=== PATIENT | female | born 1980 | race Caucasian/White ===

== ENCOUNTER 2023-08-24 14:33 | Emergency (ER) | payer BC, OTHER ==
[2023-08-24] MEDS ORDERED: Sodium Chloride 0.9% 2.5 ML Syringe FLUSH PRN (14:38)
[2023-08-24] MEDS ORDERED: Diphtheria,Pertussis(Acell),Tetanus Vaccine 0.5 ML Syringe IM ONE (14:38)
[2023-08-24] MEDS ORDERED: Sodium Chloride 0.9% 10 ML Syringe FLUSH PRN (14:38)
[2023-08-24] MEDS ORDERED: Ondansetron 4 MG/2 ML SDV IVPUSH ONE (14:38)
[2023-08-24] MEDS ORDERED: Lidocaine 1% with EPINEPHrine 1:100,000 20 ML MDV INJECT ONE (14:38)
[2023-08-24 14:46] LABS: BASOPHILS ABSOLUTE AUTO 0.13 K/uL (0.00-0.20); EOSINOPHILS ABSOLUTE AUTO 0.12 K/uL (0.00-0.45); EOSINOPHILS PERCENT AUTO 1.9 % (0.0-6.0); HEMATOCRIT 39.4 % (37.0-47.0); HEMOGLOBIN 12.8 g/dL (12.0-16.0); IMMATURE GRAN ABSOLUTE AUTO 0.02 K/uL (0.00-0.05); IMMATURE GRAN PERCENT AUTO 0.3 % (0.0-0.4); LYMPHOCYTES ABSOLUTE AUTO 3.47 K/uL (1.00-4.80); LYMPHOCYTES PERCENT AUTO 53.7 % (24.0-44.0); MEAN CORPUSCULAR HEMOGLOBIN 27.6 pg (28.0-32.0); MEAN CORPUSCULAR HGB CONC 32.5 g/dL (32.0-36.0); MEAN CORPUSCULAR VOLUME 85.1 fL (83.0-99.0); MEAN PLATELET VOLUME 10.6 fL (9.4-12.3); MONOCYTES ABSOLUTE AUTO 0.52 K/uL (0.00-0.80); NEUTROPHILS PERCENT AUTO 34.1 % (41.0-71.0); PLATELET COUNT,PLT 339 K/uL (150-400); RED BLOOD CELL COUNT 4.63 M/uL (4.10-5.30); WHITE BLOOD CELL COUNT,WBC 6.46 K/uL (3.9-11.3)
[2023-08-24 15:04] LABS: INR 1.03 (0.86-1.11)
[2023-08-24] MEDS ORDERED: Morphine 2 MG/ML SYRINGE IVPUSH ONE (15:06)
[2023-08-24] MEDS ORDERED: Naloxone 0.4 MG/ML SDV IVPUSH PRN (15:06)
[2023-08-24 15:17] LABS: A/G RATIO 0.9 (0.9-1.6); ALBUMIN 3.9 g/dL (3.4-5.0); BILIRUBIN TOTAL 0.2 mg/dL (0.2-1.0); CALCIUM 8.5 mg/dL (8.5-10.1); CARBON DIOXIDE,CO2 26.2 mmol/L (21.0-32.0); CREATININE 0.8 mg/dL (0.6-1.0); EST CRCL DRUG DOSING (CG) 79.11 mL/min; POTASSIUM,K 3.3 mmol/L (3.5-5.1); PROTEIN TOTAL,TP 8.3 g/dL (6.4-8.2)
[2023-08-24] MEDS ORDERED: ceFAZolin 2 GM in Sodium Chloride 0.9% 50 ML IV ONE (16:33)
== END 2023-08-24 18:53 | disposition home or self-care (01) ==
LOC: MW.ED 14:33
DX: S01.01XA Laceration without foreign body of scalp, initial encounter (principal); S63.501A Unspecified sprain of right wrist, initial encounter; Z23 Encounter for immunization; V86.05XA Driver of 3- or 4- wheeled all-terrain vehicle (ATV) injured in traffic accident, initial encounter
CPT/HCPCS: 12005; 29125; 36415; 70450; 70486; 72125; 73110; 80053; 85025; 85610; 90471; 90715; 96365; 96375; 99284; J0690; J2270; J2405; J3490

== ENCOUNTER 2023-09-02 13:16 | Emergency (ER) | payer SELFPAY | END 2023-09-02 14:17 | disposition left against medical advice (07) | LOC: MW.ED 13:16 | DX: S01.01XD Laceration without foreign body of scalp, subsequent encounter (principal); Z48.02 Encounter for removal of sutures; V86.55XD Driver of 3- or 4- wheeled all-terrain vehicle (ATV) injured in nontraffic accident, subsequent encounter | CPT/HCPCS: 99281 ==

== ENCOUNTER 2025-07-04 00:39 | Emergency (ER) | payer SELFPAY | END 2025-07-04 02:40 | disposition home or self-care (01) | LOC: MW.ED 00:39 | DX: S01.21XA Laceration without foreign body of nose, initial encounter (principal); F10.120 Alcohol abuse with intoxication, uncomplicated; Z79.899 Other long term (current) drug therapy; W01.198A Fall on same level from slipping, tripping and stumbling with subsequent striking against other object, initial encounter | CPT/HCPCS: 12013; 70450; 72125; 99284; J2003; 99283 ==